=== PATIENT | male | born 1945 | race Caucasian/White ===

== ENCOUNTER → 2024-09-19 | Outpatient (REF) | payer MEDICARE, OTHER ==
[~2024-09-19] MED LIST: FUROSEMIDE INJ 10 MG/ML 4 ML VIAL ONE
== END ==
LOC: NM 12:04
PROVIDERS: ATTEND Urology
DX: N13.30 Unspecified hydronephrosis (principal)
CPT/HCPCS: 78708; A9562; J1940

== ENCOUNTER → 2025-01-02 | Outpatient (REF) | payer MEDICARE, OTHER | LOC: CT 12:14 | PROVIDERS: ATTEND Urology | DX: N20.0 Calculus of kidney (principal) | CPT/HCPCS: 74176 ==

== ENCOUNTER 2025-03-05 08:51 | Inpatient (IN) | payer MEDICARE ==
[~2025-03-05] VITALS: Ht 160 cm; Wt 44.9 kg
[2025-03-05] VITALS (7 sets, daily range): BP systolic 77–117; BP diastolic 54–64; PULSE 74–88; RESP 16–20; TEMP 97–97.8; O2SAT 95–100
[~2025-03-05 08:51] MED LIST changes: +ACETAMINOPHEN325 M1 PO; +AQUAPHOR WITH N50 GM; +ASCORBIC ACID500 M2 PO; +CHOLECALCIFEROL1 GM; +ELIQUIS5 MG PO; +FEROSUL325 MG PO; -FUROSEMIDE INJ 10 MG/ML 4 ML VIAL ONE; +INCRUSE ELLI62.5 MCG; +KETOCONAZOLE15 GM TOP; +LIPITOR20 MG PO; +MEMANTINE HCL10 MG; +MIRTAZAPINE7.5 MG PO; +MULTI-VITAMIN1 EACH PO; +OMEPRAZOLE40 MG PO
[2025-03-05 10:17] LABS: BASOPHILS % 0.3 % (0.0-1.0); EOSINOPHILS # (AUTO) 0.1 (0.0-0.4); EOSINOPHILS % 0.8 % (0.0-6.0); HEMATOCRIT 28.5 % (38.2-49.6); HEMOGLOBIN 8.8 g/dL (14.0-18.0); LYMPHOCYTES # (AUTO) 0.9 (1.0-3.2); LYMPHOCYTES % 5.6 % (18.0-39.1); MEAN CORPUSCULAR HEMOGLOBIN 25.7 pg (28-32); MEAN CORPUSCULAR HGB CONC 30.9 g/dL (31-35); MEAN CORPUSCULAR VOLUME 83.1 fL (81-99); MONOCYTES # (AUTO) 0.8 (0.2-0.8); MONOCYTES % 4.9 % (4.4-11.3); NEUTROPHILS # (AUTO) 13.8 (2.1-6.9); NEUTROPHILS % 87.9 % (38.7-80.0); PLATELET COUNT 269 x10e3/uL (140-360); RED BLOOD COUNT 3.43 x10e6/uL (4.3-5.7); RED CELL DISTRIBUTION WIDTH 15.9 % (11.7-14.4); WHITE BLOOD COUNT 15.65 x10e3/uL (4.8-10.8)
[2025-03-05 10:20] LABS: ANION GAP 13.7 mmol/L (8-16); CALCIUM 8.3 mg/dL (8.4-10.2); CREATININE, SERUM 2.89 mg/dL (0.72-1.25); POTASSIUM 3.7 mmol/L (3.5-5.1)
[2025-03-05] MEDS ORDERED: FENTANYL CITRATE/PF 100MCG/2 ML INJ ONE (10:22)
[2025-03-05] MEDS ORDERED: PROPOFOL IV EMULSION 10 MG/ML 20 ML VIAL ONE ×2 (10:22→12:30)
[2025-03-05] MEDS ORDERED: LIDOCAINE HCL 2% LOCAL INJ 5 ML SDV VIAL INJ ONE (10:23)
[2025-03-05] MEDS ORDERED: DEXAMETHASONE SOD PHOS INJ 4 MG/ML SDV ONE (10:23)
[2025-03-05] MEDS ORDERED: ONDANSETRON HCL INJ 2MG/ML 2ML 2 MG/ML VIAL ONE (10:23)
[2025-03-05] MEDS ORDERED: PHENYLEPHRINE HCL 1% 10 MG/ML VIAL ONE (11:57)
[2025-03-05] MEDS ORDERED: EPHEDRINE SULFATE INJ 50 MG/ML VIAL ONE (12:59)
[2025-03-05] MEDS ORDERED: ACETAMINOPHEN 1000 MG/100 ML IV PRN (13:00)
[2025-03-05] MEDS ORDERED: DIPHENHYDRAMINE HCL INJ 50 MG/ML VIAL IM PRN (13:00)
[2025-03-05] MEDS ORDERED: GENTAMICIN 80MG/NS 100 ML 100 ML IV SCH (13:00)
[2025-03-05] MEDS: SODIUM CHLORIDE 0.9% 1000ML 1,000 ML IV SCH (16:32)
[2025-03-05] MEDS: GENTAMICIN 80MG/NS 100 ML 100 ML IV SCH (16:44)
[2025-03-05 16:47] LABS: INR 1.43; PROTHROMBIN TIME 18.2 seconds (11.9-14.5)
[2025-03-05] MEDS: GENTAMICIN 80MG/NS 100 ML 200 ML IV ONE (21:53)
[2025-03-05] MEDS: LACTATED RINGER'S 1,000 ML ONE (21:53)
[2025-03-06] VITALS (9 sets, daily range): BP systolic 89–106; BP diastolic 51–67; PULSE 66–82; RESP 12–21; TEMP 97.7–98.4; O2SAT 93–100
[2025-03-06 05:34] LABS: BASOPHILS % 0.1 % (0.0-1.0); HEMOGLOBIN 8.5 g/dL (14.0-18.0); LYMPHOCYTES # (AUTO) 0.5 (1.0-3.2); LYMPHOCYTES % 2.5 % (18.0-39.1); MEAN CORPUSCULAR HEMOGLOBIN 25.2 pg (28-32); MEAN CORPUSCULAR HGB CONC 29.3 g/dL (31-35); MEAN CORPUSCULAR VOLUME 86.1 fL (81-99); MONOCYTES # (AUTO) 0.7 (0.2-0.8); MONOCYTES % 3.4 % (4.4-11.3); NEUTROPHILS # (AUTO) 18.8 (2.1-6.9); NEUTROPHILS % 93.6 % (38.7-80.0); PLATELET COUNT 229 x10e3/uL (140-360); RED BLOOD COUNT 3.37 x10e6/uL (4.3-5.7); RED CELL DISTRIBUTION WIDTH 16.2 % (11.7-14.4); WHITE BLOOD COUNT 20.08 x10e3/uL (4.8-10.8)
[2025-03-06 06:11] LABS: ANION GAP 13.8 mmol/L (8-16); CALCIUM 8.2 mg/dL (8.4-10.2); CREATININE, SERUM 2.39 mg/dL (0.72-1.25); POTASSIUM 4.8 mmol/L (3.5-5.1)
[2025-03-06 08:08] LABS: BAND NEUTROPHILS % (MANUAL) 2 %; LYMPHOCYTES % (MANUAL) 2 % (19-48); MONOCYTES % (MANUAL) 5 % (3.4-9.0); NEUTROPHILS % (MANUAL) 91 % (40-74)
[2025-03-06 08:09] LABS: PLATELET ESTIMATE ADEQUATE; PLATELET MORPHOLOGY COMMENT NORMAL; RBC MORPHOLOGY COMMENT NORMAL
[2025-03-06] MEDS ORDERED: ONDANSETRON HCL INJ 2MG/ML 2ML 2 MG/ML VIAL IV PRN (09:00)
[2025-03-06] MEDS ORDERED: IOPAMIDOL 370 MG/ML 100 ML INFUS..BTL INJ ONE (16:05)
[2025-03-06] MEDS ORDERED: SODIUM CHLORIDE 0.9% 500ML 500 ML ONE (16:05)
[2025-03-06] MEDS ORDERED: FENTANYL CITRATE/PF 100MCG/2 ML INJ ONE (16:22)
[2025-03-06] MEDS ORDERED: MIDAZOLAM HCL 2 MG/2 ML VIAL ONE (16:22)
[2025-03-06] MEDS ORDERED: CEFTRIAXONE 1 GM VIAL ONE (16:23)
[2025-03-06] MEDS ORDERED: SODIUM CHLORIDE 0.9% 250ML 250 ML ONE (16:23)
[2025-03-06 18:35] LABS: BILIRUBIN,URINE SMALL (NEGATIVE); CLARITY,URINE TURBID (CLEAR); COLOR,URINE RED (YELLOW); GLUCOSE, URINE 1+ (NEGATIVE); KETONES,URINE NEGATIVE (NEGATIVE); LEUKOCYTE ESTERASE ,URINE TRACE (NEGATIVE); NITRITE,URINE POSITIVE (NEGATIVE); PH,URINE 6 (5 - 7); PROTEIN,URINE DIPSTICK >=300 (NEGATIVE); URINE UROBILINOGEN 0.2 mg/dL (0.2 - 1)
[2025-03-06 18:36] LABS: BACTERIA,URINE MODERATE /HPF; RBC,URINE 21-50 /HPF (0-5)
[2025-03-07] VITALS (9 sets, daily range): BP systolic 95–108; BP diastolic 57–65; PULSE 79–87; RESP 17–18; TEMP 97.6–98.4; O2SAT 95–100
[2025-03-07 05:08] LABS: BASOPHILS % 0.1 % (0.0-1.0); EOSINOPHILS % 0.1 % (0.0-6.0); HEMATOCRIT 25.3 % (38.2-49.6); LYMPHOCYTES # (AUTO) 0.8 (1.0-3.2); LYMPHOCYTES % 4.6 % (18.0-39.1); MEAN CORPUSCULAR HEMOGLOBIN 25.5 pg (28-32); MEAN CORPUSCULAR HGB CONC 30.4 g/dL (31-35); MEAN CORPUSCULAR VOLUME 83.8 fL (81-99); MONOCYTES # (AUTO) 0.6 (0.2-0.8); MONOCYTES % 3.4 % (4.4-11.3); NEUTROPHILS # (AUTO) 16.2 (2.1-6.9); NEUTROPHILS % 91.2 % (38.7-80.0); PLATELET COUNT 275 x10e3/uL (140-360); RED BLOOD COUNT 3.02 x10e6/uL (4.3-5.7); RED CELL DISTRIBUTION WIDTH 16.1 % (11.7-14.4)
[2025-03-07 05:27] LABS: HEMOGLOBIN 7.7 g/dL (14.0-18.0)
[2025-03-07 05:57] LABS: ANION GAP 11.9 mmol/L (8-16); CALCIUM 7.6 mg/dL (8.4-10.2); CREATININE, SERUM 2.1 mg/dL (0.72-1.25); POTASSIUM 3.9 mmol/L (3.5-5.1)
[2025-03-07] MEDS: GENTAMICIN 80MG/NS 100 ML 100 ML IV SCH (12:38)
[2025-03-07 16:44] LABS: ABG HCO3 16 mmol/L (22-26); ABG PCO2 28 mmHg (35-45); ABG PH 7.37 (7.35-7.45); ABG PO2 115 mmHg (80-105); ABG TCO2 17
[2025-03-08] VITALS (10 sets, daily range): BP systolic 106–125; BP diastolic 60–75; PULSE 79–104; RESP 15–18; TEMP 97.8–98.4; O2SAT 95–100
[2025-03-08 06:17] LABS: BASOPHILS % 0.2 % (0.0-1.0); EOSINOPHILS # (AUTO) 0.1 (0.0-0.4); EOSINOPHILS % 0.6 % (0.0-6.0); HEMATOCRIT 23.6 % (38.2-49.6); HEMOGLOBIN 7.3 g/dL (14.0-18.0); LYMPHOCYTES # (AUTO) 0.8 (1.0-3.2); LYMPHOCYTES % 6.5 % (18.0-39.1); MEAN CORPUSCULAR HEMOGLOBIN 25.6 pg (28-32); MEAN CORPUSCULAR HGB CONC 30.9 g/dL (31-35); MEAN CORPUSCULAR VOLUME 82.8 fL (81-99); MONOCYTES # (AUTO) 0.5 (0.2-0.8); MONOCYTES % 3.6 % (4.4-11.3); NEUTROPHILS # (AUTO) 10.9 (2.1-6.9); NEUTROPHILS % 88.4 % (38.7-80.0); PLATELET COUNT 246 x10e3/uL (140-360); RED BLOOD COUNT 2.85 x10e6/uL (4.3-5.7); RED CELL DISTRIBUTION WIDTH 15.9 % (11.7-14.4); WHITE BLOOD COUNT 12.38 x10e3/uL (4.8-10.8)
[2025-03-08 06:36] LABS: ANION GAP 12.2 mmol/L (8-16); CALCIUM 7.6 mg/dL (8.4-10.2); CREATININE, SERUM 1.73 mg/dL (0.72-1.25); POTASSIUM 4.2 mmol/L (3.5-5.1)
[2025-03-08] MEDS: ASCORBIC ACID 500 MG TAB PO SCH (09:40)
[2025-03-08] MEDS: PANTOPRAZOLE SODIUM 20 MG TABLET.DR PO SCH (09:40)
[2025-03-08] MEDS: LORATADINE 10 MG TAB PO SCH (09:40)
[2025-03-08] MEDS ORDERED: FUROSEMIDE INJ 10 MG/ML 4 ML VIAL ONE (10:47)
[2025-03-08] MEDS: IRON SUCROSE 100 MG in SODIUM CHLORIDE 0.9% 100 ML IV SCH (11:47)
[2025-03-08] MEDS: ENOXAPARIN SOD INJ 40 MG/0.4 ML SYR SC SCH (15:55)
[2025-03-08] MEDS: ATORVASTATIN 40 MG TAB PO SCH (22:55)
[2025-03-08] MEDS: MIRTAZAPINE 15 MG TAB PO SCH (22:56)
[2025-03-09] VITALS (10 sets, daily range): BP systolic 98–114; BP diastolic 51–69; PULSE 82–97; RESP 15–18; TEMP 97.1–98.4; O2SAT 97–100
[2025-03-09 05:06] LABS: BASOPHILS % 0.2 % (0.0-1.0); EOSINOPHILS # (AUTO) 0.1 (0.0-0.4); HEMATOCRIT 23.4 % (38.2-49.6); HEMOGLOBIN 7.4 g/dL (14.0-18.0); LYMPHOCYTES # (AUTO) 0.9 (1.0-3.2); LYMPHOCYTES % 8.3 % (18.0-39.1); MEAN CORPUSCULAR HEMOGLOBIN 25.3 pg (28-32); MEAN CORPUSCULAR HGB CONC 31.6 g/dL (31-35); MEAN CORPUSCULAR VOLUME 80.1 fL (81-99); MONOCYTES # (AUTO) 0.5 (0.2-0.8); MONOCYTES % 4.8 % (4.4-11.3); NEUTROPHILS # (AUTO) 9.4 (2.1-6.9); NEUTROPHILS % 85.1 % (38.7-80.0); PLATELET COUNT 200 x10e3/uL (140-360); RED BLOOD COUNT 2.92 x10e6/uL (4.3-5.7); WHITE BLOOD COUNT 11.09 x10e3/uL (4.8-10.8)
[2025-03-09 05:30] LABS: ANION GAP 12.2 mmol/L (8-16); CALCIUM 7.3 mg/dL (8.4-10.2); CREATININE, SERUM 1.74 mg/dL (0.72-1.25)
[2025-03-09 05:32] LABS: POTASSIUM 3.2 mmol/L (3.5-5.1)
[2025-03-10] VITALS (7 sets, daily range): BP systolic 96–143; BP diastolic 47–85; PULSE 76–93; RESP 17–20; TEMP 97.5–98.3; O2SAT 100
[2025-03-10] MEDS: POTASSIUM CHLORIDE 20 MEQ TAB CR PO ONE (14:59)
[2025-03-11] VITALS (7 sets, daily range): BP systolic 95–118; BP diastolic 56–70; PULSE 79–88; RESP 17–19; TEMP 97.2–98.5; O2SAT 100
[2025-03-11 05:24] LABS: BASOPHILS # (AUTO) 0.1 (0.0-0.1); BASOPHILS % 0.6 % (0.0-1.0); EOSINOPHILS # (AUTO) 0.3 (0.0-0.4); EOSINOPHILS % 2.5 % (0.0-6.0); HEMATOCRIT 26.1 % (38.2-49.6); LYMPHOCYTES % 9.3 % (18.0-39.1); MEAN CORPUSCULAR HEMOGLOBIN 25.1 pg (28-32); MEAN CORPUSCULAR HGB CONC 30.7 g/dL (31-35); MEAN CORPUSCULAR VOLUME 81.8 fL (81-99); MONOCYTES # (AUTO) 0.5 (0.2-0.8); MONOCYTES % 4.9 % (4.4-11.3); NEUTROPHILS # (AUTO) 8.8 (2.1-6.9); NEUTROPHILS % 81.9 % (38.7-80.0); PLATELET COUNT 244 x10e3/uL (140-360); RED BLOOD COUNT 3.19 x10e6/uL (4.3-5.7); WHITE BLOOD COUNT 10.69 x10e3/uL (4.8-10.8)
[2025-03-11 05:57] LABS: ANION GAP 13.8 mmol/L (8-16); CREATININE, SERUM 1.87 mg/dL (0.72-1.25); POTASSIUM 3.8 mmol/L (3.5-5.1)
[2025-03-11] MEDS: PHENAZOPYRIDINE HCL 100 MG TAB PO PRN (11:00)
[2025-03-11] MEDS: LACTATED RINGER'S 1,000 ML INJ SCH (11:01)
[2025-03-11] MEDS: ACETAMINOPHEN 325 MG TAB PO PRN (22:31)
[2025-03-12] VITALS (9 sets, daily range): BP systolic 106–142; BP diastolic 55–82; PULSE 78–91; RESP 17–20; TEMP 97.2–98.3; O2SAT 96–100
[2025-03-12 08:17] LABS: ANION GAP 11.7 mmol/L (8-16); CREATININE, SERUM 1.66 mg/dL (0.72-1.25); POTASSIUM 3.7 mmol/L (3.5-5.1)
[2025-03-12] MEDS: LACTATED RINGER'S 1,000 ML INJ ONE (17:23)
[2025-03-13] VITALS (9 sets, daily range): BP systolic 118–132; BP diastolic 45–68; PULSE 74–87; RESP 17–19; TEMP 97.2–98.6; O2SAT 96–100
[2025-03-13 05:43] LABS: ANION GAP 12.9 mmol/L (8-16); CALCIUM 8.3 mg/dL (8.4-10.2); CREATININE, SERUM 1.62 mg/dL (0.72-1.25); POTASSIUM 3.9 mmol/L (3.5-5.1)
[2025-03-13] MEDS: ENOXAPARIN SOD INJ 40 MG/0.4 ML SYR SC SCH (17:15)
[2025-03-14] VITALS (8 sets, daily range): BP systolic 111–126; BP diastolic 55–74; PULSE 62–87; RESP 17–20; TEMP 97.3–98.9; O2SAT 97–100
[2025-03-14 06:58] LABS: ANION GAP 10.8 mmol/L (8-16); CALCIUM 8.1 mg/dL (8.4-10.2); CREATININE, SERUM 1.6 mg/dL (0.72-1.25); POTASSIUM 3.8 mmol/L (3.5-5.1)
[2025-03-14] MEDS: CYANOCOBALAMIN INJ 1,000 MCG/ML VIAL IM SCH (10:31)
[2025-03-14] MEDS: THIAMINE HCL 100 MG TAB PO SCH (10:31)
[2025-03-14] MEDS: MEGESTROL ACETATE 40 MG TAB PO SCH (10:31)
[2025-03-15] VITALS (9 sets, daily range): BP systolic 99–131; BP diastolic 46–75; PULSE 59–90; RESP 17–18; TEMP 97–98.2; O2SAT 96–100
[2025-03-15 06:17] LABS: ANION GAP 11.1 mmol/L (8-16); CALCIUM 8.2 mg/dL (8.4-10.2); CREATININE, SERUM 1.59 mg/dL (0.72-1.25); POTASSIUM 4.1 mmol/L (3.5-5.1)
[2025-03-15 07:51] LABS: BASOPHILS % 0.5 % (0.0-1.0); EOSINOPHILS # (AUTO) 0.2 (0.0-0.4); EOSINOPHILS % 2.5 % (0.0-6.0); LYMPHOCYTES # (AUTO) 1.3 (1.0-3.2); LYMPHOCYTES % 18.1 % (18.0-39.1); MEAN CORPUSCULAR HEMOGLOBIN 25.8 pg (28-32); MEAN CORPUSCULAR HGB CONC 30.9 g/dL (31-35); MEAN CORPUSCULAR VOLUME 83.5 fL (81-99); MONOCYTES # (AUTO) 0.5 (0.2-0.8); MONOCYTES % 6.4 % (4.4-11.3); NEUTROPHILS # (AUTO) 5.3 (2.1-6.9); NEUTROPHILS % 71.8 % (38.7-80.0); PLATELET COUNT 222 x10e3/uL (140-360); RED BLOOD COUNT 2.67 x10e6/uL (4.3-5.7); RED CELL DISTRIBUTION WIDTH 16.9 % (11.7-14.4); WHITE BLOOD COUNT 7.31 x10e3/uL (4.8-10.8)
[2025-03-15 07:58] LABS: HEMOGLOBIN 6.9 g/dL (14.0-18.0)
[2025-03-15 07:59] LABS: HEMATOCRIT 22.3 % (38.2-49.6)
[2025-03-15] MEDS: FOLIC ACID 1 MG TAB PO SCH (08:30)
[2025-03-15] MEDS: SODIUM CHLORIDE 0.9% 250ML 250 ML IV ONE (14:44)
[2025-03-15] MEDS: FUROSEMIDE INJ 10 MG/ML 2 ML VIAL IV PRN (15:06)
[2025-03-15] MEDS: SODIUM CHLORIDE 0.9% 250ML 250 ML ONE (15:53)
[2025-03-16] VITALS (7 sets, daily range): BP systolic 92–156; BP diastolic 54–90; PULSE 83–91; RESP 17–20; TEMP 97.9–98.6; O2SAT 97–100
[2025-03-16 08:12] LABS: BASOPHILS % 0.5 % (0.0-1.0); EOSINOPHILS # (AUTO) 0.2 (0.0-0.4); EOSINOPHILS % 2.2 % (0.0-6.0); HEMATOCRIT 32.3 % (38.2-49.6); HEMOGLOBIN 10.5 g/dL (14.0-18.0); LYMPHOCYTES # (AUTO) 1.3 (1.0-3.2); LYMPHOCYTES % 15.3 % (18.0-39.1); MEAN CORPUSCULAR HEMOGLOBIN 26.4 pg (28-32); MEAN CORPUSCULAR HGB CONC 32.5 g/dL (31-35); MEAN CORPUSCULAR VOLUME 81.2 fL (81-99); MONOCYTES # (AUTO) 0.6 (0.2-0.8); MONOCYTES % 6.4 % (4.4-11.3); NEUTROPHILS # (AUTO) 6.5 (2.1-6.9); PLATELET COUNT 191 x10e3/uL (140-360); RED BLOOD COUNT 3.98 x10e6/uL (4.3-5.7); RED CELL DISTRIBUTION WIDTH 16.5 % (11.7-14.4)
[2025-03-16] MEDS: SODIUM CHLORIDE 0.9% 250ML 250 ML ONE ×2 (08:54)
[2025-03-16 08:58] LABS: ANION GAP 12.7 mmol/L (8-16); CALCIUM 8.2 mg/dL (8.4-10.2); CREATININE, SERUM 1.76 mg/dL (0.72-1.25); POTASSIUM 3.7 mmol/L (3.5-5.1)
[2025-03-16] MEDS: ENOXAPARIN 30 MG/0.3 ML SYR SC SCH (17:29)
[2025-03-17] VITALS (11 sets, daily range): BP systolic 102–117; BP diastolic 53–91; PULSE 72–91; RESP 16–20; TEMP 97.6–98.9; O2SAT 96–98
[2025-03-18] VITALS (13 sets, daily range): BP systolic 109–137; BP diastolic 62–81; PULSE 73–93; RESP 16–18; TEMP 97.8–98.6; O2SAT 94–100
[2025-03-19] VITALS (8 sets, daily range): BP systolic 127–149; BP diastolic 74–97; PULSE 82–96; RESP 18–21; TEMP 97–98.8; O2SAT 93–100
[2025-03-19 07:15] LABS: BASOPHILS # (AUTO) 0.1 (0.0-0.1); EOSINOPHILS # (AUTO) 0.2 (0.0-0.4); EOSINOPHILS % 2.7 % (0.0-6.0); HEMATOCRIT 31.6 % (38.2-49.6); HEMOGLOBIN 9.8 g/dL (14.0-18.0); LYMPHOCYTES # (AUTO) 1.1 (1.0-3.2); LYMPHOCYTES % 15.8 % (18.0-39.1); MEAN CORPUSCULAR HEMOGLOBIN 26.3 pg (28-32); MEAN CORPUSCULAR VOLUME 84.7 fL (81-99); MONOCYTES # (AUTO) 0.5 (0.2-0.8); NEUTROPHILS # (AUTO) 5.2 (2.1-6.9); NEUTROPHILS % 73.1 % (38.7-80.0); PLATELET COUNT 207 x10e3/uL (140-360); RED BLOOD COUNT 3.73 x10e6/uL (4.3-5.7); RED CELL DISTRIBUTION WIDTH 18.2 % (11.7-14.4); WHITE BLOOD COUNT 7.11 x10e3/uL (4.8-10.8)
[2025-03-19 07:40] LABS: ANION GAP 13.7 mmol/L (8-16); CALCIUM 8.7 mg/dL (8.4-10.2); CREATININE, SERUM 1.87 mg/dL (0.72-1.25); POTASSIUM 4.7 mmol/L (3.5-5.1)
[2025-03-19] MEDS ORDERED: MEMANTINE 10 MG TAB PO SCH (17:00)
[2025-03-19] MEDS ORDERED: APIXABAN 5 MG TABLET PO SCH (17:00)
[2025-03-20] MEDS ORDERED: MULTIVITAMINS/MINERALS TAB PO SCH (09:00)
[2025-03-20] MEDS ORDERED: FERROUS SULFATE 325 MG TAB PO SCH (09:00)
[2025-03-22 06:24] LABS: ABG HCO3 16 mmol/L (22-26); ABG PCO2 28 mmHg (35-45); ABG PH 7.37 (7.35-7.45); ABG PO2 115 mmHg (80-105); ABG TCO2 17
== END 2025-03-19 16:05 | DRG 689 ==
LOC: OR 08:51 → PACU V 13:31 → MED/SURG 14:02 → MED/SURG3 03-13 18:19
PROVIDERS: ADMIT Internal Medicine; ATTEND Internal Medicine
PROC: 0TCB8ZZ Extirpation of Matter from Bladder, Via Natural or Artificial Opening Endoscopic (ICD-10-PCS; 2025-03-05)
PROC: 0T9B40Z Drainage of Bladder with Drainage Device, Percutaneous Endoscopic Approach (ICD-10-PCS; 2025-03-05)
PROC: BT1D0ZZ Fluoroscopy of Right Kidney, Ureter and Bladder using High Osmolar Contrast (ICD-10-PCS; 2025-03-05)
PROC: 0WJR7ZZ Inspection of Genitourinary Tract, Via Natural or Artificial Opening Approach (ICD-10-PCS; 2025-03-05)
PROC: 05HY33Z Insertion of Infusion Device into Upper Vein, Percutaneous Approach (ICD-10-PCS; principal; 2025-03-07)
PROC: 3E03329 Introduction of Other Anti-infective into Peripheral Vein, Percutaneous Approach (ICD-10-PCS; 2025-03-07)
PROC: 0T9B40Z Drainage of Bladder with Drainage Device, Percutaneous Endoscopic Approach (ICD-10-PCS; 2025-03-07)
DX: N13.6 Pyonephrosis (principal); E43 Unspecified severe protein-calorie malnutrition; R53.2 Functional quadriplegia; N20.2 Calculus of kidney with calculus of ureter; Z16.12 Extended spectrum beta lactamase (ESBL) resistance; D68.9 Coagulation defect, unspecified; L02.214 Cutaneous abscess of groin; E87.20 Acidosis, unspecified; Z68.1 Body mass index [BMI] 19.9 or less, adult; R47.01 Aphasia; N13.8 Other obstructive and reflux uropathy; R33.9 Retention of urine, unspecified; N17.9 Acute kidney failure, unspecified; B96.89 Other specified bacterial agents as the cause of diseases classified elsewhere; R53.81 Other malaise; N18.30 Chronic kidney disease, stage 3 unspecified; Z87.440 Personal history of urinary (tract) infections; Z74.01 Bed confinement status; Z93.3 Colostomy status; Z89.611 Acquired absence of right leg above knee; I69.361 Other paralytic syndrome following cerebral infarction affecting right dominant side; B96.20 Unspecified Escherichia coli [E. coli] as the cause of diseases classified elsewhere; F01.50 Vascular dementia, unspecified severity, without behavioral disturbance, psychotic disturbance, mood disturbance, and anxiety; Q54.1 Hypospadias, penile; N48.21 Abscess of corpus cavernosum and penis; N31.9 Neuromuscular dysfunction of bladder, unspecified; E78.5 Hyperlipidemia, unspecified; E87.6 Hypokalemia; B96.4 Proteus (mirabilis) (morganii) as the cause of diseases classified elsewhere; F09 Unspecified mental disorder due to known physiological condition; Z79.1 Long term (current) use of non-steroidal anti-inflammatories (NSAID); Z79.01 Long term (current) use of anticoagulants
CPT/HCPCS: 36415; 36600; 50430; 71046; 74176; 74420; 74470; 76942; 78708; 80048; 81001; 82805; 84550; 85025; 85610; 86850; 86900; 86920; 87071; 87075; 87086; 87186; 87205; 88300; 88307; 93005; 94799; 99152; 99153; 99252; A9562; C1729; C1758; C1769; J0692; J0696; J1100; J1580; J1650; J1756; J1938; J2003; J2185; J2250; J2371; J2405; J2470; J2543; J3411; J3420; J7030; J7040; J7050; P9016; Q9967

== ENCOUNTER 2025-04-22 13:40 | Inpatient (IN) | payer MEDICARE ==
[~2025-04-22] VITALS: Ht 160 cm; Wt 44.9 kg
[2025-04-22 15:01] LABS: BASOPHILS % 0.4 % (0.0-1.0); EOSINOPHILS % 2.5 % (0.0-6.0); LYMPHOCYTES % 12.2 % (18.0-39.1); MONOCYTES % 5.0 % (4.4-11.3); NEUTROPHILS % 79.7 % (38.7-80.0); RED CELL DISTRIBUTION WIDTH 19.3 % (11.7-14.4)
[2025-04-22 15:06] LABS: INR 1.07
[2025-04-22 15:13] LABS: EST GLOMERULAR FILTRATION RATE 43.0 ML/MIN (>=60)
[2025-04-22] MEDS ORDERED: Morphine 4mg INJECTION 4 MG/ML INJ IV PRN (15:15)
[2025-04-22] MEDS ORDERED: ONDANSETRON HCL INJ 2MG/ML 2ML 2 MG/ML VIAL IV PRN (15:15)
[2025-04-22 15:19] LABS: LEUKOCYTE ESTERASE ,URINE LARGE (NEGATIVE); PROTEIN,URINE DIPSTICK >=300 (NEGATIVE); URINE UROBILINOGEN 1 mg/dL (0.2 - 1)
[2025-04-22 15:35] LABS: WBC,URINE (MAN) >50 /HPF (0-5)
[2025-04-22] MEDS ORDERED: SODIUM CHLORIDE 0.9% 500ML 500 ML ONE (15:45)
[2025-04-22] MEDS ORDERED: IOPAMIDOL 370 MG/ML 100 ML INFUS..BTL INJ ONE (15:45)
[2025-04-22] MEDS ORDERED: LIDOCAINE HCL 1% 30ML-PF VIAL ONE (15:45)
[2025-04-22] MEDS ORDERED: CEFTRIAXONE 1 GM VIAL ONE (16:03)
[2025-04-22] MEDS ORDERED: SODIUM CHLORIDE 0.9% 250ML 250 ML ONE (16:03)
[2025-04-22 16:53] VITALS: PULSE 100; RESP 16; TEMP 98.1
[2025-04-22] MEDS: SODIUM CHLORIDE 0.9% 1000ML 1,000 ML IV SCH (16:54)
[2025-04-22 18:00] VITALS: BP 111/73; PULSE 100; RESP 18; TEMP 98.7; O2SAT 100
[2025-04-22 20:00] VITALS: BP 108/71; PULSE 97; RESP 18; TEMP 97.4; O2SAT 100
[2025-04-22] MEDS ORDERED: LORATADINE10 MG PO (20:44)
[2025-04-22] MEDS ORDERED: FOLIC ACID-VIT1 EACH PO (20:44)
[2025-04-22] MEDS ORDERED: PHENAZOPYRIDIN100 MG PO (20:44)
[2025-04-22] MEDS ORDERED: THIAMINE H100 MG/1 M IV (20:44)
[2025-04-22] MEDS ORDERED: NALOXONE H0.4 MG/1 M IM (20:44)
[2025-04-22] MEDS ORDERED: MIRTAZAPINE15 MG PO (20:44)
[2025-04-22] MEDS: LACTULOSE SYRUP 20 GM/30 ML UDC PO SCH (23:58)
[2025-04-22] MEDS: POLYETHYLENE GLYCOL 3350 17 GM PACK PO SCH (23:58)
[2025-04-22] MEDS: BISACODYL 10 MG SUPP PR ONE (23:59)
[2025-04-23] VITALS (7 sets, daily range): BP systolic 101–136; BP diastolic 59–92; PULSE 91–105; RESP 16–19; TEMP 97.3–98.6; O2SAT 98–100
[2025-04-23 05:34] LABS: BASOPHILS % 0.4 % (0.0-1.0); EOSINOPHILS % 1.9 % (0.0-6.0); LYMPHOCYTES % 10.3 % (18.0-39.1); MONOCYTES % 5.2 % (4.4-11.3); NEUTROPHILS % 81.9 % (38.7-80.0); RED CELL DISTRIBUTION WIDTH 19.4 % (11.7-14.4)
[2025-04-23 05:53] LABS: EST GLOMERULAR FILTRATION RATE 41.0 ML/MIN (>=60)
[2025-04-23] MEDS: LORATADINE 10 MG TAB PO SCH (10:09)
[2025-04-23] MEDS: ASCORBIC ACID 500 MG TAB PO SCH (10:09)
[2025-04-23] MEDS: MEMANTINE 10 MG TAB PO SCH (10:09)
[2025-04-23] MEDS: BISACODYL 5 MG TAB EC PO SCH (10:09)
[2025-04-23] MEDS: PANTOPRAZOLE SODIUM 20 MG TABLET.DR PO SCH (12:13)
[2025-04-23] MEDS: MIRTAZAPINE 15 MG TAB PO SCH (21:22)
[2025-04-23] MEDS: ATORVASTATIN 20 MG TAB PO SCH (21:22)
[2025-04-24] VITALS (8 sets, daily range): BP systolic 90–164; BP diastolic 52–95; PULSE 64–100; RESP 16–18; TEMP 97.7–98.6; O2SAT 98–100
[2025-04-25] VITALS (7 sets, daily range): BP systolic 100–124; BP diastolic 67–80; PULSE 81–91; RESP 16–22; TEMP 97.6–98.4; O2SAT 98–100
[2025-04-26] VITALS (7 sets, daily range): BP systolic 97–120; BP diastolic 59–82; PULSE 65–92; RESP 16–18; TEMP 97.7–98.4; O2SAT 98–100
[2025-04-26 05:22] LABS: BASOPHILS % 0.6 % (0.0-1.0); EOSINOPHILS % 6.9 % (0.0-6.0); LYMPHOCYTES % 11.5 % (18.0-39.1); MONOCYTES % 5.8 % (4.4-11.3); NEUTROPHILS % 74.9 % (38.7-80.0); RED CELL DISTRIBUTION WIDTH 19.7 % (11.7-14.4)
[2025-04-26 05:47] LABS: EST GLOMERULAR FILTRATION RATE 58.0 ML/MIN (>=60)
[2025-04-27] VITALS: BP 120/77; PULSE 82; RESP 17; TEMP 98.1; O2SAT 98
[2025-04-27 04:00] VITALS: BP 125/75; PULSE 86; RESP 17; TEMP 98.3; O2SAT 97
[2025-04-27 07:39] VITALS: BP 141/88; PULSE 87; RESP 18; TEMP 97.9; O2SAT 97
[2025-04-27 07:48] VITALS: BP 141/88; PULSE 87; RESP 18; TEMP 97.9; O2SAT 97
[2025-04-27 12:35] VITALS: BP 140/77; PULSE 83; RESP 18; TEMP 98.2; O2SAT 99
[2025-04-27 20:00] VITALS: BP 146/89; PULSE 88; RESP 17; TEMP 98.9; O2SAT 98
[2025-04-28] VITALS (7 sets, daily range): BP systolic 130–159; BP diastolic 73–98; PULSE 83–86; RESP 17–19; TEMP 97.9–98.9; O2SAT 98–100
[2025-04-29 01:03] VITALS: BP 137/94; PULSE 88; RESP 16; TEMP 98.6; O2SAT 100
[2025-04-29 04:44] VITALS: BP 134/82; PULSE 83; RESP 16; TEMP 98.2; O2SAT 100
[2025-04-29 05:40] LABS: BASOPHILS % 0.6 % (0.0-1.0); EOSINOPHILS % 6.6 % (0.0-6.0); LYMPHOCYTES % 15.2 % (18.0-39.1); MONOCYTES % 6.2 % (4.4-11.3); NEUTROPHILS % 71.1 % (38.7-80.0); RED CELL DISTRIBUTION WIDTH 19.7 % (11.7-14.4)
[2025-04-29 06:17] LABS: EST GLOMERULAR FILTRATION RATE 65.0 ML/MIN (>=60)
[2025-04-29 08:57] VITALS: BP 134/92; PULSE 83; RESP 18; TEMP 98.2; O2SAT 97
[2025-04-29 09:09] VITALS: BP 134/92; PULSE 94; RESP 18; TEMP 98.2; O2SAT 97
[2025-04-29 11:46] VITALS: BP 145/83; PULSE 86; RESP 18; TEMP 98.1; O2SAT 99
[2025-04-29] MEDS ORDERED: ONDANSETRON HCL 4 MG ORAL DISINTEGRATING TAB PO PRN (13:45)
== END 2025-04-29 15:10 | DRG 698 ==
LOC: ER 15:04 → ERHOLD 15:09 → MED/SURG 18:19
PROVIDERS: ADMIT Internal Medicine; ATTEND Internal Medicine
PROC: 0T25X0Z Change Drainage Device in Kidney, External Approach (ICD-10-PCS; principal; 2025-04-22)
DX: T83.098A Other mechanical complication of other urinary catheter, initial encounter (principal); R53.2 Functional quadriplegia; T83.518A Infection and inflammatory reaction due to other urinary catheter, initial encounter; D68.9 Coagulation defect, unspecified; K56.7 Ileus, unspecified; N17.9 Acute kidney failure, unspecified; N18.4 Chronic kidney disease, stage 4 (severe); Z16.12 Extended spectrum beta lactamase (ESBL) resistance; Z16.24 Resistance to multiple antibiotics; I69.351 Hemiplegia and hemiparesis following cerebral infarction affecting right dominant side; D63.1 Anemia in chronic kidney disease; Z89.611 Acquired absence of right leg above knee; N41.9 Inflammatory disease of prostate, unspecified; N30.90 Cystitis, unspecified without hematuria; N31.9 Neuromuscular dysfunction of bladder, unspecified; F01.50 Vascular dementia, unspecified severity, without behavioral disturbance, psychotic disturbance, mood disturbance, and anxiety; E78.5 Hyperlipidemia, unspecified; N20.0 Calculus of kidney; K21.9 Gastro-esophageal reflux disease without esophagitis; R53.81 Other malaise; K59.00 Constipation, unspecified; Y84.6 Urinary catheterization as the cause of abnormal reaction of the patient, or of later complication, without mention of misadventure at the time of the procedure; Z93.6 Other artificial openings of urinary tract status; Z79.01 Long term (current) use of anticoagulants; I25.2 Old myocardial infarction; Z74.01 Bed confinement status; Z93.3 Colostomy status
CPT/HCPCS: 36415; 50387; 50431; 74018; 74176; 74470; 80048; 80053; 81001; 85025; 85610; 85730; 87086; 87106; 87186; 99252; 99284; C1769; J0696; J2003; J2543; J7030; J7040; J7050; Q9967

== ENCOUNTER → 2025-05-09 | Outpatient (REF) | payer MEDICARE ==
[~2025-05-09] MED LIST changes: +FOLIC ACID-VIT1 EACH PO; +LORATADINE10 MG PO; +MIRTAZAPINE15 MG PO; +NALOXONE H0.4 MG/1 M IM; +PHENAZOPYRIDIN100 MG PO; +THIAMINE H100 MG/1 M IV
== END ==
LOC: CT 14:15
PROVIDERS: ATTEND Internal Medicine
DX: R33.8 Other retention of urine (principal); N40.1 Benign prostatic hyperplasia with lower urinary tract symptoms; Z96.0 Presence of urogenital implants
CPT/HCPCS: 74176